=== PATIENT | female | born 1965 | race Caucasian/White ===

== ENCOUNTER 2017-01-02 09:13 | Day surgery (SDC) | payer BC ==
[~2017-01-02 09:13] MED LIST: Dexamethasone IV* 4 MG/ML 1 ML (4 MG) IV SLOW PU ONE; Famotidine IV* 10 MG/ML 2 ML (20 mg) IV ONE
[2017-01-02] MEDS ORDERED: Dexamethasone IV* 4 MG/ML 1 ML (4 MG) ONE (09:25)
[2017-01-02] MEDS ORDERED: Famotidine IV* 10 MG/ML 2 ML (20 mg) ONE (09:25)
[2017-01-02] MEDS ORDERED: ceFAZolin 2 GM PREMIX(*) 2 GM/50 ML BAG IVPB ONE (09:25)
[2017-01-02] MEDS ORDERED: fentaNYL* 50 MCG/ML 2 ML VIAL (100 MCG VIAL) ONE ×2 (10:45→13:04)
[2017-01-02] MEDS ORDERED: Atracurium* 10 MG/ML 10 ML VIAL ONE (10:45)
[2017-01-02] MEDS ORDERED: Midazolam* 1 MG/ML 5 ML VIAL (5 MG) ONE (10:45)
[2017-01-02] MEDS ORDERED: Propofol* 10 MG/ML 20 ML BTL IV PUSH ONE (10:46)
[2017-01-02] MEDS ORDERED: Ketorolac INJ* 30 MG/ML 1 ML VIAL ONE (10:46)
[2017-01-02] MEDS ORDERED: Ondansetron INJ* 2 MG/ML VIAL ONE (10:46)
[2017-01-02] MEDS ORDERED: ROPIVACAINE 5 MG/ML 30 ML BTL (0.5%) ONE (11:15)
[2017-01-02] MEDS ORDERED: Bupivacaine 0.25% SDV* 30 ML ONE (11:16)
[2017-01-02] MEDS ORDERED: Ondansetron INJ* 2 MG/ML VIAL IV PRN (12:26)
[2017-01-02] MEDS ORDERED: HYDROmorphone* 1 MG/ML 1 ML SYR IV PRN (12:26)
[2017-01-02] MEDS ORDERED: DiMENhydriNATE IV* 50 MG/ML VIAL IV PUSH PRN (12:26)
[2017-01-02] MEDS ORDERED: oxyCODONE/Acetamin 5/325 MG* TAB PO PRN (12:26)
[2017-01-02] MEDS ORDERED: fentaNYL* 50 MCG/ML 2 ML VIAL (100 MCG VIAL) IV PRN (12:26)
[2017-01-02 15:56] VITALS: BP 121/80
--- NOTE | 2017-01-08 09:59 | OP ---
OPERATIVE REPORT: DATE OF OPERATION: 01/02/17 - [facility] DATE OF : 67 SURGEON: Nasir Alba MD CRISIS WORKER: BROCK Garozn. ANESTHESIOLOGIST: Demetri Olvera MD ANESTHESIA: General with nerve block. PRE-OPERATIVE DIAGNOSES: 1. Left shoulder full thickness rotator cuff tear. 2. Bicipital tendinitis. POST-OPERATIVE DIAGNOSES: 1. Left shoulder full thickness rotator cuff tear. 2. Bicipital tendinitis. OPERATIVE PROCEDURE: 1. Left shoulder arthroscopy with glenohumeral debridement. 2. Rotator cuff repair. 3. Subacromial decompression with acromioplasty. 4. Subpectoral biceps tenodesis. COMPLICATIONS: None. ESTIMATED BLOOD LOSS: Minimal. IMPLANTS: Two 4.75 HEALICOIL, one MULTIFIX, and one 2.8 Q-FIX. INDICATION: Katt Madrigal is a 51-year-old female who has had almost 1-year history of shoulder pain, acutely worse a few months ago when she started to have more night pain, difficulties with activity. She has recently started working out and losing weight and has noticed problems with trying to maintain her activities of daily living. After failing conservative treatment, an MRI was done which demonstrated full thickness rotator cuff tear. Risks and benefits of conservative versus operative management were discussed at length and she has elected to proceed with surgery. DESCRIPTION OF PROCEDURE: The patient was greeted in the preoperative area by the attending surgeon. The correct extremity was marked and the consent was confirmed. The patient underwent interscalene nerve block by the anesthesiologist, after which the patient was brought back to the operating suite where she was placed in the supine position on the operating table. The patient then underwent general anesthesia and endotracheal intubation, after which she was placed in the right lateral decubitus position with all bony prominences fat padded and she was secured with peg board. The left shoulder was draped unsterile with traction frame. The left shoulder was prepped and draped in usual sterile fashion beginning with chlorhexidine soap, scrub and alcohol wipe and a final prep with ChloraPrep. After appropriate surgical pause indicating side, site, and procedure, administration of antibiotics, the standard posterolateral portal was made using 11 blade. The scope was introduced into the joint. The joint was examined. There was grade 0 changes to the glenohumeral joint. The anterior, posterior and superior labrum had mild fraying and there was evidence of a flap repair. The anterior portal was made in an outside-in fashion. The biceps were then taken through range of motion and found to have erythema and inflammation along the bicipital groove. The undersurface of the subscap had had mild tearing, which was debrided back using a shaver. There was about less than 5% tearing. The undersurface of the supraspinatus was identified and there was evidence of a full thickness tear along the anterior-superior portion. The infraspinatus was intact. Once the debridement was complete, attention was directed to the subacromial space. The scope was repositioned at the subacromial space and a lateral portal was made in the outside-in fashion. Shaver was used to debride any remaining bursa. The undersurface of the acromion was identified and skeletonized using the electrocautery device. An anterior lateral spur was identified, which was then debrided back using a 4-0 oval coretta. All loose debris and fluid was removed from the joint and attention was directed to the rotator cuff. There was a full thickness small U-shape tear at the anterior superior rotator cuff that was probed, the remaining tissues just posterior to this had tearing, the cuff was mobilized. The greater tuberosity was then prepared using the arthroscopic grasp as well as a shaver device and electrocautery device. At this point, it was decided to make 2 medial anchors and these were placed with excellent purchase and packing tissues in a horizontal mattress configuration. One strand of each suture was then cut and passed to a MULTIFIX knotless anchor that was placed laterally. The rotator cuff was then taken to range of motion, found to be well secured with compression of the footprint. Final images were obtained. Attention was directed to the biceps. The table was airplaned to the left side. The anterior aspect of the shoulder was reprepped with ChloraPrep. An incision was made with 15 blade and soft tissues were carefully dissected to expose pec fascia. This was done using Metzenbaum scissors. Once the fascia was identified, the remainder of the dissection was done using blunt dissection. [place] blades were used to retract the pec proximally. The bicipital groove was identified and biceps remnant removed through the wound and examined. There was abundant synovitis and erythema noted. A groove was then prepared in usual fashion with electrocautery device, the rasp and the osteotome, after which the Q-Fix anchor drill guide was then used to unicortically drill and the anchor was deployed with excellent purchase. Sutures were then passed through the tendon approximately 1 cm proximal to the musculotendinous junction. The biceps tendon was then sharply excised and the biceps was shuttled back into the wound. This was then tied down. The wound was copiously irrigated, the anterior wound was closed in layers of 2-0 Vicryl and 3-0 Monocryl and the portal with 3-0 nylon. The anterior wound was injected with 20 cc of 0.25% Marcaine. Sterile dressings were applied as well as a Cryo/Cuff and UltraSling. He was then awoken from anesthesia and transferred to the PACU in stable condition. POSTOPERATIVE PLAN: She will be nonweightbearing. She will be allowed range of motion 4 to 5 times a day, out of the sling with elbow, hand and wrist range of motion. She will be discharged with pain medications as well as antibiotics. I will see the patient back in 10 to 14 days. [id number]/[facility] #: [id number] GUSTAVO
== END 2017-01-02 15:10 | disposition home or self-care (01) ==
LOC: OR 09:13
PROVIDERS: ATTEND Orthopaedic Surgery
DX: M75.112 Incomplete rotator cuff tear or rupture of left shoulder, not specified as traumatic (principal); M75.22 Bicipital tendinitis, left shoulder
CPT/HCPCS: C1713; C1776; J0690; J1100; J1885; J2250; J2405; J2704; J2795; J3010